=== PATIENT | female | born 1995 | race Caucasian/White ===

== ENCOUNTER 2017-08-20 17:30 | Emergency (ER) | payer MEDICAID ==
[~2017-08-20] VITALS: Ht 160 cm; Wt 57.3 kg
[2017-08-20 17:34] VITALS: Ht 160 cm; Wt 57.3 kg
[2017-08-20 20:06] VITALS: BP 116/76
== END 2017-08-20 20:06 | disposition home or self-care (01) ==
LOC: ED 17:30
DX: G43.909 Migraine, unspecified, not intractable, without status migrainosus (principal); R11.10 Vomiting, unspecified; R19.7 Diarrhea, unspecified
CPT/HCPCS: J1200; J1885; J2765; J7030

== ENCOUNTER 2018-01-18 19:23 | Emergency (ER) | payer MEDICAID ==
[~2018-01-18] VITALS: Ht 160 cm; Wt 61.2 kg
[2018-01-18 19:29] VITALS: Ht 160 cm; Wt 61.2 kg
[2018-01-18 20:08] VITALS: BP 113/77
== END 2018-01-18 20:08 | disposition home or self-care (01) ==
LOC: ED 19:23
DX: L25.9 Unspecified contact dermatitis, unspecified cause (principal)

== ENCOUNTER 2018-02-04 10:20 | Emergency (ER) | payer MEDICAID ==
[~2018-02-04] VITALS: Ht 160 cm; Wt 62.1 kg
[2018-02-04 10:50] VITALS: Ht 160 cm; Wt 62.1 kg
[2018-02-04 12:26] VITALS: BP 115/76
== END 2018-02-04 12:26 | disposition home or self-care (01) ==
LOC: ED 10:20
DX: J06.9 Acute upper respiratory infection, unspecified (principal); F17.210 Nicotine dependence, cigarettes, uncomplicated; G43.909 Migraine, unspecified, not intractable, without status migrainosus